=== PATIENT | male | born 2005 | race Caucasian/White ===

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

== ENCOUNTER 2024-01-29 08:35 | Emergency (ER) | payer OTHER, SELFPAY ==
--- NOTE | ~2024-01-29 | XR_ITS ---
EXAMINATION: XR lumbar spine 2-3V DATE: 01/29/2024 09:30 INDICATION: Low back pain while exercising TECHNIQUE: Anteroposterior and lateral views of the lumbar spine, and cone-down lateral view of the l umbosacral junction were obtained. COMPARISON: None. FINDINGS: 6 degrees lumbar levocurvature. Sagittal alignment is normal. Vertebral body heights are normal. Disc heights are normal. Mild lower lumbar facet osteoarthritis. Bilateral sacral iliac joints are normal with no erosions. IMPRESSION: 1. 6 degrees lumbar levocurvature with mild lumbar facet osteoarthritis. Reviewed, dictated and finalized at location B.
[2024-01-29 08:46] VITALS: BP 116/64; PULSE 63; RESP 20; TEMP 36.8; O2SAT 100
--- NOTE | 2024-01-29 09:00 | ED.BACK ---
HPI - Back Pain/Injury General Chief Complaint: Back Pain/Injury Stated Complaint: BACK PAIN Time Seen by Provider: 01/29/24 09:00 Source: patient Mode of arrival: ambulatory Limitations: no limitations History of Present Illness HPI Narrative: 18-year-old male presented for complaint of low back pain. Onset yesterday morning when exercising. States he was doing a row with the cable machine when he felt a pop to the right lower back. Pain is also noted to her left lower back but not as severe. Rates pain 9/10. Patient stopped exercise immediately. Took ibuprofen last night and Tylenol today. Mother is a PT, stating she did massage and some SI joint exercises. Pain is worse when bending or sitting, better when standing. Denies pain radiating into the hips or legs, numbness, tingling, weakness of the lower extremities, or change in gait, saddle paresthesia or loss of bowel or bladder. Related Data Allergies Allergy/AdvReac Type Severity Reaction Status Date / Time No Known Allergies Allergy Verified 01/29/24 09:01 Review of Systems Review of Systems: CONSTITUTIONAL: Denies body aches, fever, chills EYES: Denies visual changes CARDIOVASCULAR: Denies chest pain, palpitations, or edema. RESPIRATORY: Denies cough or dyspnea. GASTROINTESTINAL: Denies abdominal pain, nausea, vomiting, or diarrhea. SKIN: Denies rash, itching, or wounds. MUSCULOSKELETAL: reports back pain NEUROLOGIC: Denies headache, numbness, tingling, or weakness. All systems reviewed & are unremarkable except as noted in HPI and below PMFSH Past Medical History Medical History No acute medical problems Family History Family History Other No acute medical problems Social History Social History Smoking status: Never smoker Alcohol intake: never Living arrangements: with family Occupation/Education: student Comments At time of signature, I have reviewed and agree with nursing past medical, surgical, social and family history unless otherwise noted. Please see nursing chart for further information. There is no relevant family history pertinent to the presenting complaint Exam Narrative: GENERAL: Well-appearing CHEST: Speaks in full sentences. No respiratory distress. HEART: Regular rate and rhythm. Normal and equal peripheral pulses. MUSC: Pain reported to bilateral lower back. No Vertebral point tenderness or paraspinal tenderness of L-spine. BLEs with normal strength and sensation, normal range of motion; endorses pain with bending or twisting movement. No ecchymosis, No open wounds, or obvious deformity; alignment normal, pulse palpable and equal bilaterally, skin warm, dry, pink. Capillary refill less than 3 seconds. Gait steady. SKIN: Warm, dry, no rash. NEURO: Alert and oriented x3. Back/Spine/Pelvis: Back/spine/pelvis image: 1. area of reported pain, nontender with palpation. Course Course Emergency Course: Patient is aware of diagnosis, understands and agrees to treatment plan. Anticipatory guidance given. Patient agrees to follow-up as directed and is aware of reasons to seek care at the emergency department. Portions of this record may have been created with voice recognition software Level of Care: Express Care Visit Vital Signs Vital signs: Vital Signs Temperature 98.3 F 01/29/24 08:46 Pulse Rate 63 01/29/24 08:46 Respiratory Rate 20 01/29/24 08:46 Blood Pressure 116/64 01/29/24 08:46 Pulse Oximetry 100 01/29/24 08:46 Oxygen Delivery Room Air 01/29/24 08:46 Temperature 98.3 F 01/29/24 08:46 Pulse Rate 63 01/29/24 08:46 Respiratory Rate 20 01/29/24 08:46 Blood Pressure 116/64 01/29/24 08:46 Pulse Oximetry 100 01/29/24 08:46 Oxygen Delivery Room Air 01/29/24 08:46 Reviewed MDM - Back Pain/Injur
== END 2024-01-29 09:47 | disposition home or self-care (01) ==
PROVIDERS: Emergency Provider Nurse Practitioner Family; PCP Pediatrics
DX: S39.012A Strain of muscle, fascia and tendon of lower back, initial encounter (principal); X58.XXXA Exposure to other specified factors, initial encounter
CPT/HCPCS: 72100; 99213; G0463